=== PATIENT | male | born 1945 | race Caucasian/White ===

== ENCOUNTER 2017-03-11 05:26 | Emergency (ER) | payer MEDICARE, OTHER ==
--- NOTE | 2017-03-11 04:54 | PCM.SN ---
- Free Text/Narrative Note: Patient is a 72 year old [place] service-connected [place] who was admitted to [facility] on 03/07/2017 following a prolonged hospitalization which began on 12/05/2016. He was hospitalized in [place] for respiratory failure and was eventually transferred to the [facility] on 12/23/2016. He had a prolonged mechanical ventilation with difficult weaning. He was trached and a feeding tube was placed. Records from [place] have been faxed to the ER. I received a call from the charge nurse at [facility] at [phone]. Mr. Ochoa was in acute respiratory distress, SOB with no chest pain. VS: 217/108. HR 112. RR 32 and labored. Ox Sat 70% on 2L/min. Blood sugars earlier in the day had been around 400 and a Novolog sliding scale was started. Mr. Ochoa was sent by ambulance to the ED in [place]. Case was discussed with Murtaza Yates RN and Dr. Ben Martin. Imp: Respiratory distress in patient with significant history of COPD and respiratory failure with prolonged intubation. Prior to transfer to ED was given a Duo-Neb neb tx, 5 mg Subq morphine and 10 mg po hydralazine.
--- NOTE | 2017-03-11 05:41 | EDM.PDOC ---
ED HPI GENERAL MEDICAL PROBLEM - General Chief Complaint: Respiratory Problem Stated Complaint: AMBULANCE Time Seen by Provider: 03/11/17 05:36 Source of Information: Reports: Patient, EMS History Limitations: Reports: Respiratory Distress - History of Present Illness INITIAL COMMENTS - FREE TEXT/NARRATIVE: sent here for SOB & O2 sat 70s. EMS arrived with O2 sat 80s. gave albuterol en route sat 90s. T 100s. h/o COPD req' intubation. Pt states feels better now. - Related Data Allergies Allergy/AdvReac Type Severity Reaction Status Date / Time No Known Allergies Allergy Verified 03/11/17 04:22 Home Meds: Home Meds Albuterol Sulfate [Proair Respiclick] 2 puff IH Q4H PRN 03/11/17 [History] Apixaban [Eliquis] 5 mg PO BID 03/11/17 [History] Budesonide/Formoterol [Symbicort 160-4.5 MCG] 2 puff INH BID 03/11/17 [History] Carvedilol 1.5625 mg PO Q12H 03/11/17 [History] Cholecalciferol (Vitamin D3) [Vitamin D3] 2,000 unit PO DAILY 03/11/17 [History] Diltiazem [Cardizem] 60 mg PO Q6HR 03/11/17 [History] Furosemide 40 mg PO DAILY 03/11/17 [History] Gabapentin [Neurontin] 600 mg PO BID 03/11/17 [History] Insulin Glarg,Human.Rec.Analog [LantUS] 48 unit SUBCUT DAILY 03/11/17 [History] Isosorbide Dinitrate 5 mg PO Q8H 03/11/17 [History] Multivitamin with Minerals [Multivitamins with Minerals] 1 each PO DAILY [History] Polyethylene Glycol 3350 [MiraLAX] 17 gm PO DAILY PRN 03/11/17 [History] Tiotropium [Spiriva HandiHaler] 18 mcg INH DAILY 03/11/17 [History] atorvaSTATin [Lipitor] 20 mg PO BEDTIME 03/11/17 [History] hydrALAZINE [Apresoline] 10 mg PO Q8H 03/11/17 [History] Past Medical History HEENT History: Reports: Glaucoma, Hard of Hearing Cardiovascular History: Reports: Afib, CAD, Heart Failure, High Cholesterol, Hypertension Respiratory History: Reports: COPD, Intubation, Previous, Pneumonia, Recurrent, SOB Genitourinary History: Reports: BPH Musculoskeletal History: Reports: Back Pain, Chronic Endocrine/Metabolic History: Reports: Diabetes, Type I Social & Family History - Family History Family Medical History: Noncontributory ED ROS GENERAL - Review of Systems Review Of Systems: ROS reveals no pertinent complaints other than HPI. ED EXAM, GENERAL - Physical Exam Exam: See Below Exam Limited By: No Limitations General Appearance: Alert, WD/WN, Mild Distress, Other (SOB) Ears: Hearing Grossly Normal Throat/Mouth: Normal Voice, No Airway Compromise Head: Atraumatic Neck: Non-Tender, Full Range of Motion Respiratory/Chest: No Respiratory Distress, No Accessory Muscle Use, Decreased Breath Sounds, Rales, Rhonchi, Wheezing. No: Retractions, Splinting Cardiovascular: Regular Rate, Rhythm GI/Abdominal: Soft, Non-Tender Extremities: Pedal Edema, Other (1+ left>) Neurological: Alert, Oriented, Normal Cognition, No Motor/Sensory Deficits Psychiatric: Normal Affect, Normal Mood Skin Exam: Warm, Dry Lymphatic: No Adenopathy Course - Vital Signs Last Recorded V/S: Last Vital Signs Temp 36.7 C 03/11/17 05:38 Pulse 109 H 03/11/17 05:38 Resp 23 H 03/11/17 05:38 BP 147/60 H 03/11/17 05:38 Pulse Ox 99 03/11/17 05:38 - Orders/Labs/Meds Orders: Active Orders 24 hr Category Date Time Status EKG Documentation Completion [RC] STAT Care 03/11/17 05:25 Active Chest w Cont [CT] Urgent Exams 03/11/17 07:20 Ordered CULTURE BLOOD [BC] Stat Lab 03/11/17 06:05 Received Labs: Laboratory Tests 03/11/17 03/11/17 03/11/17 Range/Units 06:05 06:05 06:05 WBC 15.7 H (5.0-10.0) 10^3/uL RBC 3.45 L (4.6-6.2) 10^6/uL Hgb 10.0 L (14.0-18.0) g/dL Hct 31.5 L (40.0-54.0) % MCV 91.3 (80-100) fL MCH 29.0 (27.0-34.0) pg MCHC 31.7 L (33.0-35.0) g/dL Plt Count 310 (150-450) 10^3/uL Neut % (Auto) 80.4 H (42.2-75.2) % Lymph % (Auto) 8.1 L (20.5-50.1) % [place] % (Auto) 9.6 H (2-8) % Eos % (Auto) 1.5 (1.0-3.0) % Baso % (Auto) 0.4 (0.0-1.0) % Add Manual Diff Yes Neutrophils % (Manual) 81 % Band Neutrophils % 6 % Lymphocytes % (Manual) 8 % Monocytes % (Manual) 5 % Hypochromasia 2+ moderate Microcytosis 1+ slight D-Dimer, Quantitative 912 H (0-400) ng/mL Sodium 140 (135-145) mmol/L Potassium 4.1 (3.6-5.0) mmol/L Chloride 102 (101-111) mmol/L Carbon Dioxide 28.0 (21.0-31.0) mmol/L Anion Gap 14.1 BUN 21 H (7-18) mg/dL Creatinine 1.2 (0.6-1.3) mg/dL Est Cr Clr Drug Dosing TNP Estimated GFR (MDRD) 59 BUN/Creatinine Ratio 17.50 Glucose 245 H (74-105) mg/dL Lactic Acid (0.5-2.2) mmol/L Calcium 8.7 (8.4-10.2) mg/dl Total Bilirubin 0.3 (0.2-1.0) mg/dL AST 17 (10-42) IU/L ALT 17 (10-60) IU/L Alkaline Phosphatase 68 (42-121) IU/L Troponin I 0.05 H* (0.00-0.02) ng/ml B-Natriuretic Peptide 372 H (0-100) pg/ml Total Protein 7.0 (6.7-8.2) g/dl Albumin 3.2 (3.2-5.5) g/dl Globulin 3.8 Albumin/Globulin Ratio 0.84 // Range/Units 06:05 WBC (5.0-10.0) 10^3/uL RBC (4.6-6.2) 10^6/uL Hgb (14.0-18.0) g/dL Hct (40.0-54.0) % MCV (80-100) fL MCH (27.0-34.0) pg MCHC (33.0-35.0) g/dL Plt Count (150-450) 10^3/uL Neut % (Auto) (42.2-75.2) % Lymph % (Auto) (20.5-50.1) % [place] % (Auto) (2-8) % Eos % (Auto) (1.0-3.0) % Baso % (Auto) (0.0-1.0) % Add Manual Diff Neutrophils % (Manual) % Band Neutrophils % % Lymphocytes % (Manual) % Monocytes % (Manual) % Hypochromasia Microcytosis D-Dimer, Quantitative (0-400) ng/mL Sodium (135-145) mmol/L Potassium (3.6-5.0) mmol/L Chloride (101-111) mmol/L Carbon Dioxide (21.0-31.0) mmol/L Anion Gap BUN (7-18) mg/dL Creatinine (0.6-1.3) mg/dL Est Cr Clr Drug Dosing Estimated GFR (MDRD) BUN/Creatinine Ratio Glucose (74-105) mg/dL Lactic Acid 1.2 (0.5-2.2) mmol/L Calcium (8.4-10.2) mg/dl Total Bilirubin (0.2-1.0) mg/dL AST (10-42) IU/L ALT (10-60) IU/L Alkaline Phosphatase (42-121) IU/L Troponin I (0.00-0.02) ng/ml B-Natriuretic Peptide (0-100) pg/ml Total Protein (6.7-8.2) g/dl Albumin (3.2-5.5) g/dl Globulin Albumin/Globulin Ratio Meds: Medications Discontinued Medications Generic Name Dose Route Start Last Admin Trade Name Freq PRN Reason Stop Dose Admin Furosemide 20 mg 03/11/17 06:26 03/11/17 06:46 Lasix IVPUSH 03/11/17 06:27 20 mg ONETIME ONE Administration Iopamidol 100 ml 03/11/17 07:21 Isovue-370 (76%) IVPUSH 03/11/17 07:22 ONETIME ONE - Re-Assessments/Exams Free Text/Narrative Re-Assessment/Exam: 03/11/17 07:26 case discussed with [facility] Dr Vela authorized transfer to [place]. 03/11/17 07:38 Dr Villafuerte @ [facility] accepted Pt. Departure - Departure Time of Disposition: 07:39 Disposition: DC/Tfer to Acute Hospital 02 Condition: Fair Clinical Impression: Hypoxemia, Acute dyspnea COPD (chronic obstructive pulmonary disease) Qualifiers: COPD type: COPD with acute exacerbation Qualified Code(s): J44.1 - Chronic obstructive pulmonary disease with (acute) exacerbation CHF (congestive heart failure) Qualifiers: Congestive heart failure type: unspecified congestive heart failure type Congestive heart failure chronicity: acute on chronic Qualified Code(s): I50.9 - Heart failure, unspecified - Discharge Information Forms: Interfacility Transfer EMTALA - My Orders Last 24 Hours: My Active Orders 03/11/17 05:25 EKG Documentation Completion [RC] STAT 03/11/17 06:05 CULTURE BLOOD [BC] Stat 03/11/17 07:20 Chest w Cont [CT] Urgent - Assessment/Plan Last 24 Hours: My Active Orders 03/11/17 05:25 EKG Documentation Completion [RC] STAT 03/11/17 06:05 CULTURE BLOOD [BC] Stat 03/11/17 07:20 Chest w Cont [CT] Urgent
[2017-03-11 05:44] VITALS: BP 147/60
[2017-03-11] MEDS ORDERED: Furosemide 20 MG/2 ML VIAL IVPUSH ONE (06:26)
[2017-03-11 06:32] LABS: CHLORIDE,CL 102 mmol/L (101-111); SODIUM,NA 140 mmol/L (135-145)
[2017-03-11] MEDS ORDERED: Iopamidol 755 Mg/ML 100 ML Bottle IVPUSH ONE (07:21)
--- NOTE | 2017-03-31 12:39 | EKG ---
03/11/2017 - RUDDY KUHN - Ritu 12-lead EKG shows atrial fibrillation with heart rate of 102. No significant ST elevation or ST depression noted on this 12-lead EKG. [facility] /[id number]
== END 2017-03-11 08:10 ==
LOC: DL.ED 05:26
DX: I11.0 Hypertensive heart disease with heart failure (principal); I50.9 Heart failure, unspecified; J44.1 Chronic obstructive pulmonary disease with (acute) exacerbation; R09.02 Hypoxemia; E78.00 Pure hypercholesterolemia, unspecified; I48.91 Unspecified atrial fibrillation; I25.10 Atherosclerotic heart disease of native coronary artery without angina pectoris; E10.9 Type 1 diabetes mellitus without complications; Z79.899 Other long term (current) drug therapy; Z79.4 Long term (current) use of insulin; Z87.01 Personal history of pneumonia (recurrent)
CPT/HCPCS: 36415; 71010; 80053; 83605; 83880; 84484; 85025; 85379; 87040; 93005; 93010; 96374; 99284; 99285; J1940

== ENCOUNTER 2017-04-07 02:05 | Emergency (ER) | payer MEDICARE, OTHER ==
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
[2017-04-07 02:18] LABS: O2 DELIVERY DEVICE NASAL CANNULA
[2017-04-07 02:20] LABS: BASE EXCESS ARTERIAL 7 mmol/L ((-2)-(+3)); BICARBONATE,ARTERIAL 32.1 mmol/L (22-26); O2 SATURATION ARTERIAL 86 % (95-100); PCO2 ARTERIAL 54 mmHg (35-45); PO2 ARTERIAL 65 mmHg (70-100)
[2017-04-07 02:22] LABS: O2 FLOW RATE 4
[2017-04-07 02:58] VITALS: BP 122/61
[2017-04-07 04:05] LABS: O2 DELIVERY DEVICE BIPAP
[2017-04-07 04:06] LABS: BASE EXCESS ARTERIAL 7 mmol/L ((-2)-(+3)); BICARBONATE,ARTERIAL 31.9 mmol/L (22-26); O2 SATURATION ARTERIAL 83 % (95-100); PCO2 ARTERIAL 52 mmHg (35-45); PO2 ARTERIAL 59 mmHg (70-100)
--- NOTE | 2017-04-07 06:14 | EDM.PDOC ---
[id number]: IN [facility] Time Seen by Provider: 04/07/17 02:10 Source of Information: Reports: Patient, EMS, Other (Dr Araiza) History Limitations: Reports: Altered Mental Status - History of Present Illness INITIAL COMMENTS - FREE TEXT/NARRATIVE: ED via ambulance from [place] [facility] with report of increased difficulty breathing increasing over past 2 days with edema to lower extremities. Hx COPD, CHF Prior intubation, vent , trach and difficulty weening him from [facility] November thru February 2017. Recent hospitalization in [place] February 2017. Patient reported to have had increased lower extremity edema. Prior to tx from [place] patient was given 5mg morphine, Lasix IM Rocephin 1 gm and Levaquin 500mg. Patient awake on arrival, eyes open vague stare, no verbal response. O2 with Nonrebreather mask on 4 L. Treatments WORK ORDER DETAILER: Reports: Oxygen - Related Data Allergies Allergy/AdvReac Type Severity Reaction Status Date / Time No Known Allergies Allergy Verified 04/07/17 02:20 Home Meds: Home Meds Apixaban [Eliquis] 5 mg PO BID 03/11/17 [History] Budesonide/Formoterol [Symbicort 160-4.5 MCG] 2 puff INH BID 03/11/17 [History] Carvedilol 1.5625 mg PO Q12H 03/11/17 [History] Cholecalciferol (Vitamin D3) [Vitamin D3] 2,000 unit PO DAILY 03/11/17 [History] Diltiazem [Cardizem] 60 mg PO Q6HR 03/11/17 [History] Gabapentin [Neurontin] 600 mg PO BID 03/11/17 [History] Insulin Glarg,Human.Rec.Analog [LantUS] 44 unit SUBCUT DAILY 03/11/17 [History] Isosorbide Dinitrate 5 mg PO Q8H 03/11/17 [History] Multivitamin with Minerals [Multivitamins with Minerals] 1 each PO DAILY [History] Polyethylene Glycol 3350 [MiraLAX] 17 gm PO DAILY PRN 03/11/17 [History] Tiotropium [Spiriva HandiHaler] 18 mcg INH DAILY 03/11/17 [History] atorvaSTATin [Lipitor] 20 mg PO BEDTIME 03/11/17 [History] hydrALAZINE [Apresoline] 10 mg PO Q8H 03/11/17 [History] Albuterol Sulfate 2.5 mg IH Q4H PRN 04/07/17 [History] Albuterol/Ipratropium [DuoNeb 3.0-0.5 MG/3 ML] 3 ml NEB TID 04/07/17 [History] Bumetanide 1 mg PO .MONWEDFRI 04/07/17 [History] Bumetanide 1 mg PO DAILY 04/07/17 [History] Glimepiride [Amaryl] 2 mg PO DAILY 04/07/17 [History] Insulin Aspart [NovoLOG] See Protocol SUBCUT ACBED PRN 04/07/17 [History] Past Medical History HEENT History: Reports: Glaucoma, Hard of Hearing Cardiovascular History: Reports: Afib, CAD, Heart Failure, High Cholesterol, Hypertension Respiratory History: Reports: COPD, Intubation, Previous, Pneumonia, Recurrent, SOB Genitourinary History: Reports: BPH Musculoskeletal History: Reports: Back Pain, Chronic Endocrine/Metabolic History: Reports: Diabetes, Type I Social & Family History - Family History Family Medical History: Noncontributory - Tobacco Use Smoking Status *Q: Former Smoker Used Tobacco, but Quit: No - Caffeine Use Caffeine Use Comment: unable to obtain - Recreational Drug Use Recreational Drug Use: No ED ROS GENERAL - Review of Systems Review Of Systems: See Below Constitutional: Reports: Fever, Weight Gain HEENT: Reports: No Symptoms Respiratory: Reports: Shortness of Breath, Cough Cardiovascular: Reports: Edema. Denies: Chest Pain, Blood Pressure Problem Endocrine: Reports: No Symptoms GI/Abdominal: Reports: No Symptoms Musculoskeletal: Reports: No Symptoms Skin: Reports: No Symptoms ED EXAM, GENERAL - Physical Exam Exam: See Below Exam Limited By: Respiratory Distress General Appearance: Lethargic (opens eyes, nods , not appearing to track or fully comprehend questions), Mild Distress, Obese (morbid) Eye Exam: Bilateral Eye: EOMI Ear Exam: Bilateral Ear: TM normal Nose: Normal Inspection Throat/Mouth: Other (mucus membranes tacky) Head: Atraumatic, Normocephalic Neck: Normal Inspection, Other (trach site with closed stoma, neck fold red moist) Respiratory/Chest: Decreased Breath Sounds, Crackles (scattered fine) Cardiovascular: Tachycardia, Extra Beats (rare PVC), Irregularly Irregular. No : Regular Rate, Rhythm, No Edema (2+ bilatera) GI/Abdominal: Normal Bowel Sounds, Soft (round), No Distention Extremities: Normal Capillary Refill Neurological: Slow to Respond (opens eyes to voice, slow nod with head to questions, no visual tracking, ) Skin Exam: Warm, Dry, Intact, Normal Color Course - Vital Signs Last Recorded V/S: Last Vital Signs Temp 100.2 F 04/07/17 02:57 Pulse 96 04/07/17 02:57 Resp 24 H 04/07/17 02:57 BP 122/61 04/07/17 02:57 Pulse Ox 85 L 04/07/17 02:57 - Orders/Labs/Meds Orders: Active Orders 24 hr Category Date Time Status EKG Documentation Completion [RC] URGENT Care 04/07/17 01:33 Active RT BiPAP/CPAP [RC] ASDIRECTED Care 04/07/17 03:31 Active ABG [BLOOD GAS ARTERIAL] [BG] Stat Lab 04/07/17 03:59 Ordered CULTURE BLOOD [BC] Stat Lab 04/07/17 02:10 Received CULTURE BLOOD [BC] Stat Lab 04/07/17 02:15 Results Labs: Laboratory Tests 04/07/17 04/07/17 04/07/17 Range/Units 01:10 02:10 02:10 WBC 17.4 H (5.0-10.0) 10^3/uL RBC 3.71 L (4.6-6.2) 10^6/uL Hgb 10.4 L (14.0-18.0) g/dL Hct 33.3 L (40.0-54.0) % MCV 89.8 (80-100) fL MCH 28.0 (27.0-34.0) pg MCHC 31.2 L (33.0-35.0) g/dL Plt Count 294 (150-450) 10^3/uL Neut % (Auto) 76.4 H (42.2-75.2) % Lymph % (Auto) 12.1 L (20.5-50.1) % [place] % (Auto) 10.1 H (2-8) % Eos % (Auto) 0.9 L (1.0-3.0) % Baso % (Auto) 0.5 (0.0-1.0) % Add Manual Diff Yes Neutrophils % (Manual) 57 % Band Neutrophils % 22 % Lymphocytes % (Manual) 14 % Atypical Lymphs % 0 % Monocytes % (Manual) 5 % Eosinophils % (Manual) 2 % Basophils % (Manual) 0 PT (9.0-12.0) SEC INR (0.9-1.2) D-Dimer, Quantitative 880 H (0-400) ng/mL ABG pH 7.40 (7.35-7.45) ABG pCO2 54 H (35-45) mmHg ABG pO2 65 L (70-100) mmHg ABG HCO3 32.1 H (22-26) mmol/L ABG O2 Saturation 86 L (95-100) % ABG Base Excess 7 H ((-2)-(+3)) mmol/L O2 Delivery Device Nasal cannula Oxygen Flow Rate 4 Sodium (135-145) mmol/L Potassium (3.6-5.0) mmol/L Chloride (101-111) mmol/L Carbon Dioxide (21.0-31.0) mmol/L Anion Gap BUN (7-18) mg/dL Creatinine (0.6-1.3) mg/dL Est Cr Clr Drug Dosing mL/min Estimated GFR (MDRD) BUN/Creatinine Ratio Glucose (74-105) mg/dL Lactic Acid (0.5-2.2) mmol/L Calcium (8.4-10.2) mg/dl Magnesium (1.8-2.5) mg/dL Total Bilirubin (0.2-1.0) mg/dL AST (10-42) IU/L ALT (10-60) IU/L Alkaline Phosphatase (42-121) IU/L CK-MB (CK-2) (0.4-4.7) ng/mL Troponin I (0.00-0.02) ng/ml B-Natriuretic Peptide (0-100) pg/ml Total Protein (6.7-8.2) g/dl Albumin (3.2-5.5) g/dl Globulin Albumin/Globulin Ratio Amylase (28-100) U/L Lipase (22-51) U/L Urine Color (YELLOW) Urine Appearance (CLEAR) Urine pH (5.0-9.0) Ur Specific [place] (1.005-1.030) Urine Protein (NEGATIVE) Urine Glucose (UA) (NEGATIVE) Urine Ketones (NEGATIVE) Urine Occult Blood (NEGATIVE) Urine Nitrite (NEGATIVE) Urine Bilirubin (NEGATIVE) Urine Urobilinogen (0.2-1.0) mg/dL Ur Leukocyte Esterase (NEGATIVE) Urine RBC /HPF Urine WBC (0-5/HPF) /HPF Ur Epithelial Cells /HPF Amorphous Sediment (0/HPF) /HPF Urine Bacteria (0-FEW/HPF) /HPF Hyaline Casts /LPF Fine Granular Casts (0/LPF) /LPF 04/07/17 04/07/17 04/07/17 Range/Units 02:10 02:10 02:10 WBC (5.0-10.0) 10^3/uL RBC (4.6-6.2) 10^6/uL Hgb (14.0-18.0) g/dL Hct (40.0-54.0) % MCV (80-100) fL MCH (27.0-34.0) pg MCHC (33.0-35.0) g/dL Plt Count (150-450) 10^3/uL Neut % (Auto) (42.2-75.2) % Lymph % (Auto) (20.5-50.1) % [place] % (Auto) (2-8) % Eos % (Auto) (1.0-3.0) % Baso % (Auto) (0.0-1.0) % Add Manual Diff Neutrophils % (Manual) % Band Neutrophils % % Lymphocytes % (Manual) % Atypical Lymphs % % Monocytes % (Manual) % Eosinophils % (Manual) % Basophils % (Manual) PT 12.2 H (9.0-12.0) SEC INR 1.2 (0.9-1.2) D-Dimer, Quantitative (0-400) ng/mL ABG pH (7.35-7.45) ABG pCO2 (35-45) mmHg ABG pO2 (70-100) mmHg ABG HCO3 (22-26) mmol/L ABG O2 Saturation (95-100) % ABG Base Excess ((-2)-(+3)) mmol/L O2 Delivery Device Oxygen Flow Rate Sodium 145 (135-145) mmol/L Potassium 4.6 (3.6-5.0) mmol/L Chloride 103 (101-111) mmol/L Carbon Dioxide 31.0 (21.0-31.0) mmol/L Anion Gap 15.6 BUN 35 H (7-18) mg/dL Creatinine 1.4 H (0.6-1.3) mg/dL Est Cr Clr Drug Dosing 49.30 mL/min Estimated GFR (MDRD) 50 BUN/Creatinine Ratio 25.00 Glucose 141 H (74-105) mg/dL Lactic Acid (0.5-2.2) mmol/L Calcium 9.0 (8.4-10.2) mg/dl Magnesium 1.7 L (1.8-2.5) mg/dL Total Bilirubin 0.6 (0.2-1.0) mg/dL AST 16 (10-42) IU/L ALT 16 (10-60) IU/L Alkaline Phosphatase 62 (42-121) IU/L CK-MB (CK-2) 1.10 (0.4-4.7) ng/mL Troponin I 0.04 H* (0.00-0.02) ng/ml B-Natriuretic Peptide 303 H (0-100) pg/ml Total Protein 7.5 (6.7-8.2) g/dl Albumin 3.5 (3.2-5.5) g/dl Globulin 4.0 Albumin/Globulin Ratio 0.88 Amylase 30 (28-100) U/L Lipase 11 L (22-51) U/L Urine Color (YELLOW) Urine Appearance (CLEAR) Urine pH (5.0-9.0) Ur Specific [place] (1.005-1.030) Urine Protein (NEGATIVE) Urine Glucose (UA) (NEGATIVE) Urine Ketones (NEGATIVE) Urine Occult Blood (NEGATIVE) Urine Nitrite (NEGATIVE) Urine Bilirubin (NEGATIVE) Urine Urobilinogen (0.2-1.0) mg/dL Ur Leukocyte Esterase (NEGATIVE) Urine RBC /HPF Urine WBC (0-5/HPF) /HPF Ur Epithelial Cells /HPF Amorphous Sediment (0/HPF) /HPF Urine Bacteria (0-FEW/HPF) /HPF Hyaline Casts /LPF Fine Granular Casts (0/LPF) /LPF 04/07/17 04/07/17 04/07/17 Range/Units 02:10 02:30 03:58 WBC (5.0-10.0) 10^3/uL RBC (4.6-6.2) 10^6/uL Hgb (14.0-18.0) g/dL Hct (40.0-54.0) % MCV (80-100) fL MCH (27.0-34.0) pg MCHC (33.0-35.0) g/dL Plt Count (150-450) 10^3/uL Neut % (Auto) (42.2-75.2) % Lymph % (Auto) (20.5-50.1) % [place] % (Auto) (2-8) % Eos % (Auto) (1.0-3.0) % Baso % (Auto) (0.0-1.0) % Add Manual Diff Neutrophils % (Manual) % Band Neutrophils % % Lymphocytes % (Manual) % Atypical Lymphs % % Monocytes % (Manual) % Eosinophils % (Manual) % Basophils % (Manual) PT (9.0-12.0) SEC INR (0.9-1.2) D-Dimer, Quantitative (0-400) ng/mL ABG pH 7.40 (7.35-7.45) ABG pCO2 52 H (35-45) mmHg ABG pO2 59 L (70-100) mmHg ABG HCO3 31.9 H (22-26) mmol/L ABG O2 Saturation 83 L (95-100) % ABG Base Excess 7 H ((-2)-(+3)) mmol/L O2 Delivery Device Bipap Oxygen Flow Rate Sodium (135-145) mmol/L Potassium (3.6-5.0) mmol/L Chloride (101-111) mmol/L Carbon Dioxide (21.0-31.0) mmol/L Anion Gap BUN (7-18) mg/dL Creatinine (0.6-1.3) mg/dL Est Cr Clr Drug Dosing mL/min Estimated GFR (MDRD) BUN/Creatinine Ratio Glucose (74-105) mg/dL Lactic Acid 0.9 (0.5-2.2) mmol/L Calcium (8.4-10.2) mg/dl Magnesium (1.8-2.5) mg/dL Total Bilirubin (0.2-1.0) mg/dL AST (10-42) IU/L ALT (10-60) IU/L Alkaline Phosphatase (42-121) IU/L CK-MB (CK-2) (0.4-4.7) ng/mL Troponin I (0.00-0.02) ng/ml B-Natriuretic Peptide (0-100) pg/ml Total Protein (6.7-8.2) g/dl Albumin (3.2-5.5) g/dl Globulin Albumin/Globulin Ratio Amylase (28-100) U/L Lipase (22-51) U/L Urine Color Yellow (YELLOW) Urine Appearance Clear (CLEAR) Urine pH 5.0 (5.0-9.0) Ur Specific [place] 1.020 (1.005-1.030) Urine Protein 100 H (NEGATIVE) Urine Glucose (UA) Negative (NEGATIVE) Urine Ketones Negative (NEGATIVE) Urine Occult Blood Negative (NEGATIVE) Urine Nitrite Negative (NEGATIVE) Urine Bilirubin Negative (NEGATIVE) Urine Urobilinogen 0.2 (0.2-1.0) mg/dL Ur Leukocyte Esterase Negative (NEGATIVE) Urine RBC 0-5 /HPF Urine WBC 5-10 H (0-5/HPF) /HPF Ur Epithelial Cells Few /HPF Amorphous Sediment Moderate (0/HPF) /HPF Urine Bacteria Few (0-FEW/HPF) /HPF Hyaline Casts Moderate H /LPF Fine Granular Casts Few H (0/LPF) /LPF - Radiology Interpretation Free Text/Narrative:: CXR: Moderate left pleural effusion, increased form previous February 2017 - Re-Assessments/Exams Free Text/Narrative Re-Assessment/Exam: TC consult Dr. Angelo, does not feel patient is appropriate for admission here due to respiratory complexity. [facility] provider [facility] Esparza, declines accepting patient in current respiratory state, if improvement noted in ABG's with Bipap then would reconsider. Minimal change in ABG with Bipap at 40%, TC with Dr. Rhett Hernandez as closest facility, does not feel patient is appropriate for direct admit and deferred to Dr. Cobb ER provider. Agreeable evaluate for further management with concern of current code status full CPR and no intubation and management . Tx via LRAS with Bipap. Respiratory status unchanged. BP stable, HR stable. oxygen sats mid to upper 80's on bipap. Departure - Departure Time of Disposition: 05:25 Disposition: DC/Tfer to Acute Hospital 02 Condition: Serious Clinical Impression: Edema of both legs, Hypoxemia, Hypercapnia Dyspnea Qualifiers: Dyspnea type: shortness of breath Qualified Code(s): R06.02 - Shortness of breath COPD (chronic obstructive pulmonary disease) Qualifiers: COPD type: COPD with acute exacerbation Qualified Code(s): J44.1 - Chronic obstructive pulmonary disease with (acute) exacerbation Diastolic congestive heart failure Qualifiers: Congestive heart failure chronicity: unspecified congestive heart failure chronicity Qualified Code(s): I50.30 - Unspecified diastolic (congestive) heart failure Diabetes type 2, controlled Qualifiers: Diabetes mellitus complication status: with unspecified complications Diabetes mellitus director long term care insulin use: without director long term care use Qualified Code(s): E11.8 - Type 2 diabetes mellitus with unspecified complications - Discharge Information Referrals: PCP,Unobtain [Primary Care Provider] - Forms: ED Department Discharge - My Orders Last 24 Hours: My Active Orders 04/07/17 01:33 EKG Documentation Completion [RC] URGENT 04/07/17 02:10 CULTURE BLOOD [BC] Stat 04/07/17 02:15 CULTURE BLOOD [BC] Stat 04/07/17 03:31 RT BiPAP/CPAP [RC] ASDIRECTED 04/07/17 03:59 ABG [BLOOD GAS ARTERIAL] [BG] Stat - Assessment/Plan Last 24 Hours: My Active Orders 04/07/17 01:33 EKG Documentation Completion [RC] URGENT 04/07/17 02:10 CULTURE BLOOD [BC] Stat 04/07/17 02:15 CULTURE BLOOD [BC] Stat 04/07/17 03:31 RT BiPAP/CPAP [RC] ASDIRECTED 04/07/17 03:59 ABG [BLOOD GAS ARTERIAL] [BG] Stat
[2017-04-07 16:19] LABS: O2 DELIVERY DEVICE BIPAP
[2017-04-07 16:21] LABS: PCO2 ARTERIAL 52 mmHg (35-45); PO2 ARTERIAL 59 mmHg (70-100)
[2017-04-07 16:22] LABS: BASE EXCESS ARTERIAL 7 mmol/L ((-2)-(+3)); BICARBONATE,ARTERIAL 31.9 mmol/L (22-26); O2 SATURATION ARTERIAL 83 % (95-100)
--- NOTE | 2017-04-07 17:47 | EKG ---
04/07/2017 - RUDDY KUHN I reviewed the EKG and agreed with the machine reading. [facility] /[id number]
== END 2017-04-07 05:27 ==
LOC: DL.ED 02:05
DX: J44.1 Chronic obstructive pulmonary disease with (acute) exacerbation (principal); I11.0 Hypertensive heart disease with heart failure; I50.30 Unspecified diastolic (congestive) heart failure; E11.8 Type 2 diabetes mellitus with unspecified complications; I25.10 Atherosclerotic heart disease of native coronary artery without angina pectoris; E10.9 Type 1 diabetes mellitus without complications; I48.91 Unspecified atrial fibrillation; E78.00 Pure hypercholesterolemia, unspecified; Z87.891 Personal history of nicotine dependence; Z79.4 Long term (current) use of insulin; Z79.899 Other long term (current) drug therapy; Z79.84 Long term (current) use of oral hypoglycemic drugs
CPT/HCPCS: 36415; 36600; 71010; 80053; 81001; 82150; 82553; 82803; 83605; 83690; 83735; 83880; 84484; 85025; 85379; 85610; 87040; 93005; 93010; 94660; 99285; Q9967